=== PATIENT | male | born 1985 | race Caucasian/White ===

== ENCOUNTER 2024-12-24 00:19 | Emergency (ER) | payer OTHER, SELFPAY ==
[2024-12-24 00:29] VITALS: BP 137/85; PULSE 96; TEMP 36.8; O2SAT 97; BMI 25.2
--- NOTE | 2024-12-24 00:58 | ED.GENADUL1 ---
HPI HPI - General Adult General Chief complaint: Dental/Oral Stated complaint: SEVERE TOOTH ACHE Time Seen by Provider: 12/24/24 00:23 Source: patient Mode of arrival: walk-in Limitations: no limitations History of Present Illness HPI narrative: 39-year-old male presents to the emergency department for toothache. He is complaining of pain to the right upper dentition and it started yesterday. He believes he has a dentist. He states he does not want any pain medication, he just wanted to get started on some antibiotics so that he can pull more of his teeth. Related Data Previous Rx's ?Medication ?Instructions ?Recorded penicillin V potassium 250 mg 250 mg PO QID 10 days #40 tabs 12/24/24 tablet Allergies Allergy/AdvReac Type Severity Reaction Status Date / Time clindamycin Allergy Mild Rash Verified 12/24/24 00:29 Review of Systems ROS Narrative A ten point review of systems is negative except as noted above. PFSH PFSH Social History Little interest or pleasure in doing things: not at all Feeling down, depressed, or hopeless: not at all Exam Narrative Exam Narrative: Nurses note and vital signs reviewed General:The patient appears in no apparent distress.Patient is resting comfortably on cart. Skin:Warm, dry, no pallor noted.There is no rash noted. Head:Normocephalic, atraumatic Eye: Normal conjunctiva, no drainage Ears, Nose, Mouth, and Throat: oral mucosa is moist. Nares patent. No facial swelling or erythema. No swelling to the floor of his mouth. He is handling his own secretions well. The teeth in the right upper dentition anteriorly are eroded down to the gumline and there appears to be some gingival swelling. There is no bleeding or pus present. Cardiovascular:Regular Rate and Rhythm Respiratory:Patient is in no distress, no accessory muscle use, lungs are clear to auscultation, no wheezing, rales or rhonchi Back:non-tender GI: Soft and nontender Musculoskeletal: No joint swelling Neurological: Awake and alert Psychiatric:Cooperative Constitutional Vital Signs, click to edit/add: Last Vital Signs Temp 98.3 F 12/24/24 00:29 Pulse 96 H 12/24/24 00:29 Resp 18 12/24/24 00:29 BP 137/85 12/24/24 00:29 Pulse Ox 97 12/24/24 00:29 O2 Del Method Room Air 12/24/24 00:29 Course Vital Signs Vital signs: Vital Signs Temperature 98.3 F 12/24/24 00:29 Pulse Rate 96 H 12/24/24 00:29 Respiratory Rate 18 12/24/24 00:29 Blood Pressure 137/85 12/24/24 00:29 Pulse Oximetry 97 12/24/24 00:29 Oxygen Delivery Method Room Air 12/24/24 00:29 Temperature 98.3 F 12/24/24 00:29 Pulse Rate 96 H 12/24/24 00:29 Respiratory Rate 18 12/24/24 00:29 Blood Pressure 137/85 12/24/24 00:29 Pulse Oximetry 97 12/24/24 00:29 Oxygen Delivery Method Room Air 12/24/24 00:29 Medical Decision Making MDM Narrative Medical decision making narrative: He was started on penicillin here and prescribe same. He will follow-up with his dentist. Treatment diagnosis and follow-up were discussed with the patient. Differential Diagnosis Differential Diagnosis: Dental caries, dental abscess Discharge Plan Discharge Chief Complaint: Dental/Oral Clinical Impression: Toothache, Dental caries Patient Disposition: Home, Self-Care Time of Disposition Decision: 00:56 Mode of Transportation: Private Vehicle Prescriptions / Home Meds: New penicillin V potassium 250 mg tablet 250 mg PO QID 10 Days Qty: 40 0RF Print Language: Hebrew Instructions: Toothache (ED) Referrals: Physician,Non-Staff, MD [Primary Care Provider] - 1 week
[2024-12-24] MEDS: PENICILLIN V POTASSIUM 250 MG TABLET 500 MG PO (01:19)
--- NOTE | 2024-12-24 01:22 | PC.NURSE ---
i gave this patient verbal and written discharge orders along with 1 e-scripts and dental sheet, and this patient voices yes to understanding these. at time of discharge this patient voices no concerns,needs and shows no sign s of distress
== END 2024-12-24 01:22 | disposition home or self-care (01) ==
PROVIDERS: Emergency Provider Emergency Medicine
DX: K08.89 Other specified disorders of teeth and supporting structures (principal); K02.9 Dental caries, unspecified
CPT/HCPCS: 99283